=== PATIENT | male | born 1975 | race Caucasian/White ===

== ENCOUNTER 2025-03-04 19:53 | Emergency (ER) | payer OTHER, SELFPAY ==
[2025-03-04 19:59] VITALS: BP 93/52; PULSE 80; RESP 16; TEMP 36.8; O2SAT 98; BMI 23.6
--- NOTE | 2025-03-04 20:07 | DI.RAD.S_ITS ---
PROCEDURE: XR KNEE RT 3V INDICATIONS: pain, injury, poss dislocation TECHNIQUE: 3 views of the knee were acquired. COMPARISON: None. FINDINGS: Bones: No fractures or dislocations. No suspicious bony lesions. Widened trochlear groove. Soft tissues: No joint effusion. No suspicious soft tissue calcifications. IMPRESSION: No acute bony abnormality or significant effusion. No dislocation. 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 Dictated by: Jeremy Llamas M.D. on 03/04/2025 at 21:08 Approved by: Jeremy Llamas M.D. on 03/04/2025 at 21:10
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
--- NOTE | 2025-03-04 20:21 | PC.NURSE ---
Patient states he has dislocated this knee several times. Today he was unable to get someone to help him put it back into place
[2025-03-04] MEDS: IBUPROFEN 400 MG TABLET 800 MG PO (21:44)
[2025-03-04] MEDS: HYDROCODONE/ACET 5/325 TABLET 1 TAB PO (21:44)
[2025-03-04 21:54] VITALS: BP 110/55; PULSE 73; RESP 16; O2SAT 98
--- NOTE | 2025-03-04 21:58 | PC.NURSE ---
Patient chewed the Oxy
== END 2025-03-04 21:59 | disposition home or self-care (01) ==
PROVIDERS: Emergency Provider Family Medicine
DX: Q74.2 Other congenital malformations of lower limb(s), including pelvic girdle (principal); M25.561 Pain in right knee
CPT/HCPCS: 73562; 99283